=== PATIENT | female | born 2000 | race Two or more races ===

== ENCOUNTER 2022-09-15 09:20 | Emergency (ER) | payer OTHER, MEDICAID ==
[2022-09-15] MEDS ORDERED: Ondansetron 4 MG/2 ML SDV IVPUSH ONE (09:32)
[2022-09-15] MEDS ORDERED: Morphine 2 MG/ML SYRINGE IVPUSH ONE (09:32)
[2022-09-15] MEDS ORDERED: Sodium Chloride 0.9% 10 ML Syringe FLUSH PRN (09:32)
[2022-09-15 09:59] LABS: ANION GAP 10.6 meq/L (7-15); CHLORIDE,CL 105 mmol/L (98-107); SODIUM,NA 141 mmol/L (136-145)
[2022-09-15 10:01] LABS: ESTIMATED GFR 128 mL/min (>=60)
[2022-09-15] MEDS ORDERED: Cyclobenzaprine 10 MG Tab PO ONE (10:55)
[2022-09-15] MEDS ORDERED: Iopamidol 612 MG/ML 100 ML Bottle IVPUSH ONE (11:13)
[2022-09-15] MEDS ORDERED: Diatrizoate Meglumine/Diatrizoate Sodium 37% 30 ML Bottle PO ONE (11:14)
[2022-09-15] MEDS ORDERED: Ketorolac 30 MG/ML SDV IM ONE (13:31)
== END 2022-09-15 14:18 | disposition home or self-care (01) ==
LOC: LL.ED 09:20
DX: S21.112A Laceration without foreign body of left front wall of thorax without penetration into thoracic cavity, initial encounter (principal); S16.1XXA Strain of muscle, fascia and tendon at neck level, initial encounter; S00.03XA Contusion of scalp, initial encounter; M62.838 Other muscle spasm; M25.512 Pain in left shoulder; R10.9 Unspecified abdominal pain; E66.9 Obesity, unspecified; Z88.8 Allergy status to other drugs, medicaments and biological substances; Z68.41 Body mass index [BMI] 40.0-44.9, adult; V49.40XA Driver injured in collision with unspecified motor vehicles in traffic accident, initial encounter; Y92.410 Unspecified street and highway as the place of occurrence of the external cause
CPT/HCPCS: 36415; 70450; 72125; 72128; 73030; 74177; 80053; 84703; 85025; 93005; 96372; 96374; 96375; 99284; A9270; J1885; J2270; J2405; J3490; Q9963; Q9967